=== PATIENT | male | born 1965 | race Caucasian/White ===

== ENCOUNTER 2016-09-08 10:03 | Day surgery (SDC) | payer OTHER ==
[2016-09-08] MEDS ORDERED: LACTATED RINGERS 1,000 ML ONE (10:10)
[2016-09-08] MEDS ORDERED: IV START KIT ONE (10:10)
[2016-09-08] MEDS ORDERED: ONDANSETRON 4 MG/2ML 2 ML VIAL IV PRN (10:45)
[2016-09-08] MEDS ORDERED: LACTATED RINGERS 1,000 ML IV SCH (10:45)
[2016-09-08] MEDS ORDERED: LIDOCAINE 1% 2 ML VIAL ID PRN (10:45)
[2016-09-08] MEDS ORDERED: PROPOFOL 80 ML IV ONE (13:05)
[2016-09-08 17:40] LABS: HELICOBACTER PYLORII DETECTION POSITIVE (NEGATIVE)
--- NOTE | 2016-09-12 12:24 | SURGPATH ---
[facility] [address] [place] [id number] Patient Name: SAJAN NAM MR#: [id number] : 1965 Gender: M Specimen #: [id number] Collected: 09/08/2016 Received: 09/09/2016 Reported: 09/12/2016 Submitting Phys: DANIEL LOPEZ Copy To Phys: CARLOS HA [facility] Clinical History / Pre-Operative Diagnosis: GERD; gastritis; colon screening Specimen Source / Surgical Procedure Performed: #1-duodenal biopsy; #2-antral ulcer biopsy; #3-antrum biopsy; #4-rectal polyp at 15 cm; #5-sigmoid colon polyp at 25 cm; #6-sigmoid colon polyp at 45 cm Interpretation: 1. DUODENAL BIOPSY: - PEPTIC DUODENITIS 2. ANTRAL ULCER, BIOPSY: - HELICOBACTER GASTRITIS 3. ANTRUM BIOPSY: - HELICOBACTER GASTRITIS 4. RECTAL POLYP AT 15 CM: - TUBULAR ADENOMA 5. SIGMOID COLON POLYP AT 25 CM, BIOPSY: - TUBULAR ADENOMA 6. SIGMOID COLON POLYP AT 45 CM, BIOPSY: - TUBULAR ADENOMA Electronically Signed Out Adam Short M.D. Gross Description: #1 The specimen is received in a formalin filled container labeled with the patient's name and "duodenal biopsy". Two carey biopsies are 0.4 and 0.5 cm. Totally embedded in cassette #1. #2 The specimen is received in a formalin filled container labeled with the patient's name and "antral ulcer biopsy". Three carey biopsies are 0.2, 0.3 and 0.4 cm. Totally embedded in cassette #2. #3 The specimen is received in a formalin filled container labeled with the patient's name and "antrum biopsy". Two carey biopsies are 0.4 and 0.5 cm. Totally embedded in cassette #3. #4 The specimen is received in a formalin filled container labeled with the patient's name and "rectal polyp at 15 cm". Two small carey biopsies are each 0.3 cm and a large polypoid red-carey biopsy is 0.7 x 0.5 x 0.5 cm. The polyp is bisected. Totally embedded in cassette #4. #5 The specimen is received in a formalin filled container labeled with the patient's name and "sigmoid colon polyp at 25 cm". A polypoid red-carey biopsy is 0.6 x 0.5 x 0.5 cm. Bisected. Totally embedded in cassette #5. #6 The specimen is received in a formalin filled container labeled with the patient's name and "sigmoid colon polyp at 45 cm". A polypoid dark pink biopsy is 0.4 x 0.4 x 0.4 cm. Totally embedded in cassette #6. Demetris Lara Microscopic Description: 1. The sections show small bowel mucosa with subtotal villous blunting and there is acute inflammation within the lamina propria and epithelium. Infectious organisms are not identified. 2. The sections show gastric mucosa with acute inflammation with collections of curvilinear bacteria on the mucosal surface. 3. The sections show gastric mucosa with acute and chronic inflammation and curvilinear bacteria present on the mucosal surface. 4. The sections show colonic mucosa exhibiting adenomatous change with a tubular architectural pattern. The changes are characterized by nuclear stratification and hyperchromasia with increased mitotic activity. High-grade dysplasia is not identified. 5. The sections show colonic mucosa exhibiting adenomatous change with a tubular architectural pattern. The changes are characterized by nuclear stratification and hyperchromasia with increased mitotic activity. High-grade dysplasia is not identified. 6. The sections show colonic mucosa exhibiting adenomatous change with a tubular architectural pattern. The changes are characterized by nuclear stratification and hyperchromasia with increased mitotic activity. High-grade dysplasia is not identified. 1: 65583 2: 21792 3: 4: 5: [id number] 6: [id number] K29.80 K29.00 B96.81 D12.8 D12.5
== END 2016-09-08 14:00 | disposition home or self-care (01) ==
LOC: SDC 10:03
PROVIDERS: ATTEND Surgery
PROC: 0DBN8ZX Excision of Sigmoid Colon, Via Natural or Artificial Opening Endoscopic, Diagnostic (ICD-10-PCS; principal; 2016-09-08)
PROC: 0DBP8ZX Excision of Rectum, Via Natural or Artificial Opening Endoscopic, Diagnostic (ICD-10-PCS; 2016-09-08)
PROC: 0DB68ZX Excision of Stomach, Via Natural or Artificial Opening Endoscopic, Diagnostic (ICD-10-PCS; 2016-09-08)
PROC: 0DB98ZX Excision of Duodenum, Via Natural or Artificial Opening Endoscopic, Diagnostic (ICD-10-PCS; 2016-09-08)
DX: K29.00 Acute gastritis without bleeding (principal); B96.81 Helicobacter pylori [H. pylori] as the cause of diseases classified elsewhere; K44.9 Diaphragmatic hernia without obstruction or gangrene; K25.7 Chronic gastric ulcer without hemorrhage or perforation; K29.80 Duodenitis without bleeding; Z12.11 Encounter for screening for malignant neoplasm of colon; D12.8 Benign neoplasm of rectum; D12.5 Benign neoplasm of sigmoid colon; K21.9 Gastro-esophageal reflux disease without esophagitis; R51 Headache; M54.2 Cervicalgia; H91.90 Unspecified hearing loss, unspecified ear; F12.90 Cannabis use, unspecified, uncomplicated; Z88.5 Allergy status to narcotic agent
CPT/HCPCS: 87081; 45385; 43239; J7120